=== PATIENT | female | born 1985 | race Caucasian/White ===

== ENCOUNTER 2024-02-14 21:56 | Emergency (ER) | payer BC, SELFPAY ==
[2024-02-14] VITALS (7 sets, daily range): BP systolic 100–136; BP diastolic 47–96; PULSE 52–60; TEMP 36.7; O2SAT 91–100; BMI 26.6
--- NOTE | 2024-02-14 23:19 | ECG_ITS ---
The [facility] Test Date: 2024-02-14 Pat Name: STU BURNS Department: Room: - Gender: Female Pediatric Np: : 1985 Requested By: Order Number: [id number] Reading MD: KALANI KINCAID Measurements Intervals [place] Rate: 66 P: 72 ND: 190 QRS: 75 QRSD: 94 T: 68 QT: 418 QTc: 432 Interpretive Statements 1100 Sinus rhythm 1102 Sinus arrhythmia 9110 normal ECG No previous ECG available for comparison Electronically Signed On 02-15-2024 6:48:37 EDT by KALANI KINCAID
--- NOTE | 2024-02-14 23:20 | CT_ITS ---
The [address] [address] Patient Name: STU BURNS MRN: [id number] date: 1985 Sex: F Assigned Patient Location: ER Current Patient Location: Accession/Order Number: [id number] Exam Date: 02/14/2024 23:42 Report Date: 02/15/2024 01:58 At the request of: GURPREET HARRY Procedure: CT angio chest EXAM: CT angio chest HISTORY: PE rule-out COMPARISON: None. TECHNIQUE: Axial CT images through the chest were obtained after the intravenous administration of contrast. Coronal and sagittal reformats were obtained. Dose reduction techniques were achieved by using automated exposure control and/or adjustment of mA and/or kV according to patient size and/or use of iterative reconstruction technique. FINDINGS: The study is technically adequate with a good contrast bolus to the pulmonary arteries. There are no filling defects or vascular cutoffs to indicate a pulmonary embolus. The pulmonary arteries are normal in size. A calcified granuloma is seen in the right lower lobe. The central airways are patent. No pleural effusion or pneumothorax is seen. The thoracic aorta is normal in course and caliber without evidence of an aneurysm. The cardiac chambers appear normal in size. There is no pericardial effusion. There is a mildly enlarged right hilar lymph node measuring up to 1.2 cm in short axis diameter (series 4, image 53). Images through the upper abdomen reveal a subcentimeter hypodensity in the left hepatic lobe that is too small to characterize by CT size criteria. No suspicious or aggressive bone lesions are seen. No acute fracture is seen. CT/CT angio chest IMPRESSION: 1. No evidence of pulmonary embolism is seen. 2. No acute cardiopulmonary abnormality. 3. Mildly enlarged right hilar lymph node, nonspecific. Electronically authenticated by: Kenia WILBURN Date: 02/15/2024 01:58
[2024-02-14 23:28] LABS: Basophils Percent Auto 0.6 % (0.2-2.0); Eosinophils Absolute Auto 0.3 10^3/uL (0.0-0.7); Eosinophils Percent Auto 5.2 % (0.9-7.0); Hematocrit 34.1 % (36.0-48.0); Hemoglobin 11.5 g/dL (12.0-16.0); Immature Granulocytes Abs Auto 0.02 10^3/uL (0.00-0.03); Immature Granulocytes Pct Auto 0.3 % (0.0-0.5); Lymphocytes Percent Auto 32.7 % (20.5-60.0); Mean Corpuscular HGB Conc 33.7 g/dL (29.9-35.2); Mean Corpuscular Hemoglobin 30.2 pg (26.7-34.0); Mean Corpuscular Volume 89.5 fL (81.0-99.0); Mean Platelet Volume 11.4 fL (9.5-13.5); Monocytes Absolute Auto 0.5 10^3/uL (0.3-0.8); Monocytes Percent Auto 7.2 % (1.7-12.0); Neutrophils Absolute Auto 3.4 10^3/uL (1.4-6.5); Platelet Count 238 10^3/uL (150-450); Red Blood Count 3.81 10^6/uL (4.20-5.40); Red Cell Distribution Width 12.6 % (11.0-15.0); White Blood Count 6.2 10^3/uL (4.0-11.0)
[2024-02-14 23:42] LABS: Alanine Aminotransferase 16 U/L (14-59); Albumin Globulin Ratio 1.3; Albumin Level 3.8 g/dL (3.4-5.0); Alkaline Phosphatase 39 U/L (46-116); Anion Gap 13.2; Aspartate Amino Transferase 11 U/L (15-37); Bilirubin Total 0.3 mg/dL (0.2-1.0); Calcium 9.1 mg/dL (8.5-10.1); Carbon Dioxide 27.3 mmol/L (21.0-32.0); Chloride 105 mmol/L (98-107); Estimated GFR (African America >60 (>=60); Estimated GFR (Non-African Ame >60 (>=60); Glucose 86 mg/dL (74-106); Potassium 3.5 mmol/L (3.5-5.1); Sodium 142 mmol/L (136-145); Total Protein 6.8 g/dL (6.4-8.2); Troponin I High Sensitivity <4.0 pg/mL (4.0-51.3)
[2024-02-14 23:45] LABS: HCG Quantitative <1 mIU/mL
[2024-02-14] MEDS: LORAZEPAM 2 MG/ML VIAL 1 MG IV (23:58)
[2024-02-15] VITALS: BP 102/58; PULSE 56; O2SAT 98
[2024-02-15 00:30] VITALS: BP 108/73; PULSE 56; O2SAT 97
[2024-02-15 01:00] VITALS: BP 94/60; PULSE 58; O2SAT 98
[2024-02-15 01:30] VITALS: BP 103/67; PULSE 72; O2SAT 99
[2024-02-15 02:00] VITALS: BP 104/77; PULSE 58; O2SAT 100
--- NOTE | 2024-02-15 02:12 | ED_ITS ---
HPI - Chest Pain General Chief Complaint: Chest Pain Stated Complaint: CP Time Seen by Provider: 02/14/24 22:34 Source: patient Mode of arrival: walk-in Limitations: no limitations History of Present Illness HPI narrative: 38-year-old female to the emergency department with chief complaint of chest pain. Is been ongoing for the last week. Occurs intermittently. She is under a lot of stress and pressure. She has no cardiac history. No shortness of breath. Otherwise at her baseline health. Related Data Home Medications ?Medication ?Instructions ?Recorded ?Confirmed No Known Home Medications 02/14/24 02/14/24 Allergies Allergy/AdvReac Type Severity Reaction Status Date / Time No Known Drug Allergies Allergy Verified 02/14/24 22:06 Review of Systems ROS Status of ROS 10 or more systems reviewed and unremark able except as noted in history and below Exam Narrative Exam Narrative: VITALS: I have reviewed the triage vital signs. GENERAL: Well developed, well appearing adult in no acute distress. NEURO: Alert and oriented. Moves all extremities. Face is symmetric and expressive. EYES: PERRL. No scleral icterus or conjunctival injection. No discharge. HENT: Normocephalic, atraumatic. Hearing is grossly intact. Nares grossly patent and without discharge. Mucous membranes moist. NECK: No JVD. Patient moves neck without restriction. CARDIO: Rhythm regular. Normal rate. No murmur, rub, or gallop. Pulses equal bilaterally in the upper and lower extremity. No lower extremity edema. PULM: Lungs clear to auscultation in all nathan. No wheezes, rales, or rhonchi. No conversational dyspnea. No splinting, stridor, or accessory muscle use. GI/: Abdomen is soft and non-tender. Normoactive bowel sounds. EXTREMITIES: Symmetric muscle bulk. No joint swelling. No clubbing, cyanosis, or deformity. SKIN: Warm and dry. Normal turgor. No rash or lesions appreciated. PSYCH: Tearful, anxious Constitutional Vital Signs, click to edit/add: Last Vital Signs Temp 98.0 F 02/14/24 22:06 Pulse 58 L 02/15/24 02:00 Resp 5 L 02/15/24 01:00 BP 104/77 02/15/24 02:00 Pulse Ox 100 02/15/24 02:00 O2 Del Method Room Air 02/14/24 22:06 Course Vital Signs Vital signs: Vital Signs Blood Pressure 136/96 H 02/14/24 22:03 Pulse Oximetry 100 02/14/24 22:03 Temperature 98.0 F 02/14/24 22:06 Pulse Rate 58 L 02/15/24 02:00 Respiratory Rate 5 L 02/15/24 01:00 Blood Pressure 104/77 02/15/24 02:00 Pulse Oximetry 100 02/15/24 02:00 Oxygen Delivery Method Room Air 02/14/24 22:06 MDM - Chest Pain MDM Narrative Medical decision making narrative: 38-year-old female to the emergency department chief complaint of intermittent chest pain. Vital stable, the patient is afebrile. Cardiac workup is initiated. CT is ordered to rule out pulmonary embolism. CBC and chemistry without major abnormality. Troponin is negative. EKG without evidence of ischemia. CT without acute findings. Incidental findings discussed with patient, recommend follow-up with PCP. She felt much improved after the Ativan. Symptoms resolved. She is appropriate for outpatient follow-up. Low risk by heart score. Return precautions were discussed. All questions were answered. The patient was discharged home. Heart Score for Major Cardiac Event History: Example factors for history - pattern of chest pain, onset, duration, relation with exercise, stress or cold, localization, concomitant symptoms. reaction to sublingual nitrates, [] Highly suspicious +2 [] Moderately suspicious +1 [X] Slightly suspicious 0 EKG: [] Significant ST-Depression +2 [] Non specific repolarization disturbance +1 [X] Normal 0 Age: [] >= 65 +2 [] 45-65 + 1 [X] <45 0 Risk Factors: (HLD, HTN, DM, Cigarette Smoking, Pos Family Hx, Obesity) [] >3 risk factors or hx of atherosclerotic disease + 2 [] 1-2 risk factors + 1 [X] No risk factors known 0 Troponin: [] >= 3X normal + 2 [] 1-3X normal + 1 [X] <= Normal 0 [X] 0-3 Points 0.9 - 1.7% risk of major adverse cardiac event in 6 weeks [] 4-6 Points 12-16.6% risk of major adverse cardiac event in 6 weeks [] 7-10 Points 50-65% risk of major adverse cardiac event in 6 weeks [] 0-3 Points with 2 sets of negative cardiac markers <1% risk of major adverse cardiac event in 30 days. Medical Records Data Attestation: I reviewed the patient's medical records. Lab Data Attestation: I reviewed the patient's lab results. Labs: Lab Results 02/14/24 Range/Units 22:20 WBC 6.2 (4.0-11.0) 10^3/uL RBC 3.81 L (4.20-5.40) 10^6/uL Hgb 11.5 L (12.0-16.0) g/dL Hct 34.1 L (36.0-48.0) % MCV 89.5 (81.0-99.0) fL MCH 30.2 (26.7-34.0) pg MCHC 33.7 (29.9-35.2) g/dL RDW 12.6 (11.0-15.0) % Plt Count 238 (150-450) 10^3/uL MPV 11.4 (9.5-13.5) fL Neut % (Auto) 54.0 (43.0-75.0) % Lymph % (Auto) 32.7 (20.5-60.0) % [place] % (Auto) 7.2 (1.7-12.0) % Eos % (Auto) 5.2 (0.9-7.0) % Baso % (Auto) 0.6 (0.2-2.0) % Neut # (Auto) 3.4 (1.4-6.5) 10^3/uL Lymph # (Auto) 2.0 (1.2-3.8) 10^3/uL [place] # (Auto) 0.5 (0.3-0.8) 10^3/uL Eos # (Auto) 0.3 (0.0-0.7) 10^3/uL Baso # (Auto) 0.0 (0.0-0.1) 10^3/uL Abs Immat Gran (auto) 0.02 (0.00-0.03) 10^3/uL Imm/Tot Granulo (auto) 0.3 (0.0-0.5) % Sodium 142 (136-145) mmol/L Potassium 3.5 (3.5-5.1) mmol/L Chloride 105 (98-107) mmol/L Carbon Dioxide 27.3 (21.0-32.0) mmol/L Anion Gap 13.2 BUN 10.0 (7.0-18.0) mg/dL Creatinine 0.83 (0.55-1.02) mg/dL Est GFR ( Amer) >60 (>=60) Est GFR (Non-Af Amer) >60 (>=60) BUN/Creatinine Ratio 12.0 Glucose 86 (74-106) mg/dL Calcium 9.1 (8.5-10.1) mg/dL Total Bilirubin 0.3 (0.2-1.0) mg/dL AST 11 L (15-37) U/L ALT 16 (14-59) U/L Alkaline Phosphatase 39 L (46-116) U/L Troponin I High Sens <4.0 L (4.0-51.3) pg/mL Total Protein 6.8 (6.4-8.2) g/dL Albumin 3.8 (3.4-5.0) g/dL Globulin 3.0 g/dL Albumin/Globulin Ratio 1.3 Lipase 29.0 (16.0-77.0) U/L HCG, Quant <1 mIU/mL Imaging Data CTA chest: Attestation: I have reviewed the pertinent imaging results. Radiologist's impression: ITS Impressions Chest CTA 02/14/24 23:20 IMPRESSION: 1. No evidence of pulmonary embolism is seen. 2. No acute cardiopulmonary abnormality. 3. Mildly enlarged right hilar lymph node, nonspecific. Electronically authenticated by: Kenia WILBURN Date: 02/15/2024 01:58 ECG Data Attestation: I personally reviewed and interpreted this ECG as follows: (No STEMI. Normal QTc. Normal sinus rhythm.) Discharge Plan Discharge Stand Alone Forms: Work/School Release, Portal Instructions Chief Complaint: Chest Pain Clinical Impression: Chest pain Patient Disposition: Home, Self-Care Time of Disposition Decision: 02:10 Condition: Good Mode of Transportation: Private Vehicle Prescriptions / Home Meds: No Action No Known Home Medications Print Language: [place] Instructions: Chest Pain (ED) Additional Instructions: Call the office of your primary care doctor to arrange for follow-up within the above-stated timeframe. Your ED visit was focused on your acute issue and does not replace primary care. You should review your labs, imaging, and diagnoses from this ED visit with your primary care physician. There may be non-emergent/ incidental findings that need further evaluation. You should review your vital signs including blood pressure with your PCP. If you were prescribed medications you should discuss possible side-effects and drug interactions with your pharmacist. Call 911 or go to the nearest Emergency Department if you develop any new or worsening symptoms. Follow-up with Dr. Bedoya on incidental findings from CT scan including: mediastinal lymph node. liver cyst. Seek immediate medical attention if you develop: worsening chest pain, new chest pain, nausea, vomiting, weakness, numbness, tingling, excessive sweating, shortness of breath, difficulty breathing, loss of motion in your arms or legs, or any new or worsening symptoms. Referrals: PERLA BEDOYA [Primary Care Provider] - 1 week
== END 2024-02-15 02:20 | disposition home or self-care (01) ==
PROVIDERS: Emergency Provider Student in an Organized Health Care Education/Training Program; PCP Family Medicine
DX: R07.9 Chest pain, unspecified (principal)
CPT/HCPCS: 36415; 71275; 80053; 83690; 84484; 84702; 85025; 93005; 96374; 99285; J2060; Q9967

== ENCOUNTER 2024-02-25 08:32 | Outpatient (OUT) | payer BC, SELFPAY ==
[2024-02-25 09:32] LABS: Erythrocyte Sedimentation Rate 16 mm/hr (<=20)
[2024-02-25 10:19] LABS: C Reactive Protein <0.50 mg/dL (<=0.50)
[2024-02-26 04:10] LABS: FSH 6.7 mIU/mL (.); Luteinizing Hormone(LH) 10.7 mIU/mL (.)
== END 2024-02-25 08:33 | disposition home or self-care (01) ==
LOC: LAB 08:36
PROVIDERS: PCP Family Medicine; Visit Provider Family Medicine
DX: R10.13 Epigastric pain (principal); R61 Generalized hyperhidrosis; R23.2 Flushing
CPT/HCPCS: 36415; 83001; 83002; 84443; 85652; 86140